=== PATIENT | male | born 2000 | race Two or more races ===

== ENCOUNTER 2021-10-02 21:14 | Emergency (ER) | payer BC, OTHER ==
[~2021-10-02] VITALS: Ht 175.3 cm; Wt 130.0 kg
[2021-10-02 21:49] VITALS: BP 157/100
[2021-10-02] MEDS ORDERED: HYDROcodone-ACET 5/325MG TAB PO ONE (23:45)
[2021-10-02] MEDS ORDERED: ONDANSETRON ODT 4 MG TAB PO ONE (23:45)
== END 2021-10-02 23:47 | disposition home or self-care (01) ==
LOC: ER 21:16
DX: S93.601A Unspecified sprain of right foot, initial encounter (principal); X50.1XXA Overexertion from prolonged static or awkward postures, initial encounter; Y93.01 Activity, walking, marching and hiking; Y92.89 Other specified places as the place of occurrence of the external cause; Y99.8 Other external cause status
CPT/HCPCS: 73610; 73630; 99284; Q0162